=== PATIENT | female | born 1970 | race African-American/Black ===

== ENCOUNTER 2023-01-14 22:00 | Emergency (ER) | payer OTHER ==
[~2023-01-14] VITALS: Ht 175.3 cm; Wt 81.6 kg
[2023-01-14] MEDS ORDERED: AMLODIPINE-OLM1 EAC2 (22:12)
== END 2023-01-15 00:24 | disposition home or self-care (01) ==
LOC: ER 22:00
DX: L03.114 Cellulitis of left upper limb (principal); W57.XXXA Bitten or stung by nonvenomous insect and other nonvenomous arthropods, initial encounter; Y93.89 Activity, other specified; Y92.89 Other specified places as the place of occurrence of the external cause
CPT/HCPCS: 36415; 96365; 99284; J0696; J1885